=== PATIENT | female | born 1945 | race Caucasian/White ===

== ENCOUNTER 2023-06-11 13:34 | Emergency (ER) | payer BC ==
[~2023-06-11] VITALS: Ht 170.2 cm; Wt 110.2 kg
[2023-06-11 16:53] VITALS: BP 132/77; TEMP 97.9; O2SAT 100
== END 2023-06-11 16:53 | disposition home or self-care (01) ==
LOC: ER 13:36
DX: S70.02XA Contusion of left hip, initial encounter (principal); I10 Essential (primary) hypertension; R51.9 Headache, unspecified; Z98.890 Other specified postprocedural states; Z88.1 Allergy status to other antibiotic agents; W01.0XXA Fall on same level from slipping, tripping and stumbling without subsequent striking against object, initial encounter; Y93.89 Activity, other specified; Y92.091 Bathroom in other non-institutional residence as the place of occurrence of the external cause; Y99.8 Other external cause status
CPT/HCPCS: 70450-TC; 72125-TC; 73502